=== PATIENT | male | born 1960 ===

== ENCOUNTER 2017-12-30 14:45 | Outpatient (CLI) | payer OTHER ==
[~2017-12-30] VITALS: Ht 177.8 cm; Wt 104.3 kg
== END 2017-12-30 15:00 | disposition home or self-care (01) ==
LOC: OFIC 805 14:45
DX: J32.8 Other chronic sinusitis (principal); H90.3 Sensorineural hearing loss, bilateral; J40 Bronchitis, not specified as acute or chronic